=== PATIENT | female | born 1925 | race Caucasian/White ===

== ENCOUNTER 2017-10-04 23:25 | Inpatient (IN) | payer OTHER, BC ==
[~2017-10-04] VITALS: Ht 160 cm; Wt 58.1 kg
[~2017-10-04 23:25] MED LIST: ALPRAZOLAM0.25 M2 PO; CYANOCOBALAM1000 MCG PO; Cardizem CD,Cartia X PO; Colace PO; IRON325 M1 PO; LEVOFLOXACIN750 MG PO; LISINOPRIL40 MG PO; LISINOPRIL5 MG PO; Lopressor PO; METOPROLOL SUCC50 MG PO; METOPROLOL TART50 MG PO; MULTI-VITAMIN1 EAC3 PO; NEXIUM40 MG PO; PREDNISONE20 MG PO; PROTONIX40 MG PO; Pradaxa PO; SIMVASTATIN40 MG; SIMVASTATIN40 MG PO; TRAMADOL HCL50 MG PO; TYLENOL EXTRA500 MG PO; Tylenol Extra Streng PO; VITAMIN B-121000 MCG PO; XARELTO15 MG; XARELTO15 MG PO; Xarelto PO; ZOCOR40 MG PO; Zestril,Prinivil PO; Zocor PO
[2017-10-05 00:23] LABS: APPEARANCE CLOUDY ((CLEAR)); BILIRUBIN NEGATIVE; BLOOD NEGATIVE; COLOR YELLOW ((YELLOW)); GLUCOSE (STRIP) 50; KETONES NEGATIVE; LEUKOCYTES TRACE; NITRITE NEGATIVE; PROTEIN (STRIP) 30; SPECIFIC GRAVITY 1.023 (1.000-1.030)
[2017-10-05 00:28] LABS: BACTERIA 1+ /HPF; CALCIUM OXALATE CRYSTALS 2+ /HPF; EPITHELIAL CELLS 1+ /HPF; HYALINE CASTS 0-5 /LPF; MUCUS TRACE /LPF; UCUL ADDED? YES; WHITE BLOOD CELLS 15-20 /HPF (0-5)
[2017-10-05 00:36] LABS: BASOPHIL (%) 0.1 % (0-1); EOSINOPHIL (%) 0.1 % (0-5); HEMATOCRIT 30.2 % (36.0-46.0); IMMATURE GRANULOCYTE (%) 0.6 % (0.0-0.7); LYMPHOCYTE COUNT 2.1 K/uL (1.0-2.8); MCH 29.8 PG (29.0-34.0); MCHC 33.1 G/DL (30.0-36.0); MCV 89.9 FL (83-99); MONOCYTE (%) 9.4 % (3-12); MONOCYTE COUNT 0.9 K/uL (0-0.8); NEUTROPHIL (%) 66.8 % (45-76); NEUTROPHIL COUNT 6.1 K/uL (1.8-6.4); PLATELET COUNT 405 K/uL (156-360); RBC DIS.WIDTH-CV 15.9 % (11.8-14.6); RBC DIS.WIDTH-SD 52.5 % (39-53); RED BLOOD COUNT 3.36 M/uL (3.80-5.20); WHITE BLOOD COUNT 9.1 K/uL (4.1-10.2)
[2017-10-05 00:44] LABS: ALBUMIN 3.7 g/dL (3.2-4.8); CHLORIDE 92 mEq/L (99-109); POTASSIUM 3.6 mEq/L (3.7-5.4); SODIUM 128 mEq/L (136-147)
[2017-10-05 00:47] LABS: GLUCOSE 108 mg/dL (70-99); TOTAL PROTEIN 6.4 g/dL (6.4-8.3)
[2017-10-05 00:49] LABS: TOTAL BILIRUBIN 0.5 mg/dL (0.0-1.0)
[2017-10-05 00:50] LABS: ALKALINE PHOSPHATASE 107 IU/L (3-129); CREATININE 0.7 mg/dL (0.6-1.3); GFR ESTIMATE (CALCULATED) > 59 mL/min/
[2017-10-05 00:51] LABS: UREA NITROGEN (BUN) 16 mg/dL (9-23)
[2017-10-05 00:52] LABS: AST (GOT) 22 IU/L (2-34)
[2017-10-05 00:53] LABS: ALT (GPT) 19 IU/L (3-49)
[2017-10-05] MEDS ORDERED: A AND D OINTM42.5 GM TP (01:49)
[2017-10-05] MEDS ORDERED: ACETAMINOPHN-T1 EACH PO (01:49)
[2017-10-05] MEDS ORDERED: STOOL SOFTENER100 MG PO (01:50)
[2017-10-05] MEDS ORDERED: SILVADENE20 GM TP (01:50)
[2017-10-05] MEDS ORDERED: VITAMIN C250 M1 PO (01:50)
[2017-10-05] MEDS ORDERED: POTASSIUM CHLO10 ME4 PO (01:51)
[2017-10-05] MEDS ORDERED: ALPRAZOLAM0.25 M2 PO (01:51)
[2017-10-05] MEDS ORDERED: LAXATIVE5 M1 PO (01:51)
[2017-10-05] MEDS ORDERED: VITAMIN B-121000 MC1 SL (01:52)
[2017-10-05] MEDS ORDERED: PREDNISONE10 MG PO (01:52)
[2017-10-05] MEDS ORDERED: BUMETANIDE2 MG PO (01:53)
[2017-10-05] MEDS ORDERED: GINKGO BILOBA40 M1 PO (01:53)
[2017-10-05 12:25] VITALS: BP 141/64
[2017-10-05 15:22] VITALS: BP 126/75
[2017-10-05 20:11] VITALS: BP 136/77
[2017-10-05 23:54] VITALS: BP 114/57
[2017-10-06 04:10] VITALS: BP 132/73
[2017-10-06 07:27] VITALS: BP 135/67
[2017-10-06 08:17] LABS: HEMATOCRIT 28.1 % (36.0-46.0); HEMOGLOBIN 9.3 G/DL (11.9-15.5); MCH 30.2 PG (29.0-34.0); MCHC 33.1 G/DL (30.0-36.0); MCV 91.2 FL (83-99); PLATELET COUNT 322 K/uL (156-360); RBC DIS.WIDTH-CV 15.9 % (11.8-14.6); RED BLOOD COUNT 3.08 M/uL (3.80-5.20); WHITE BLOOD COUNT 6.1 K/uL (4.1-10.2)
[2017-10-06 08:55] LABS: CHLORIDE 97 MEQ/L (99-109); CREATININE 0.7 MG/DL (0.6-1.3); GFR ESTIMATE (CALCULATED) > 59 mL/min/; GLUCOSE 131 mg/dL (70-99); POTASSIUM 4.3 MEQ/L (3.7-5.4); SODIUM 128 MEQ/L (136-147); UREA NITROGEN (BUN) 11 mg/dL (9-23)
[2017-10-06 11:40] VITALS: BP 125/58
[2017-10-06 18:14] VITALS: BP 135/89
[2017-10-06 19:48] VITALS: BP 120/65
[2017-10-06 23:16] VITALS: BP 140/71
[2017-10-07 04:22] VITALS: BP 133/58
[2017-10-07 07:32] VITALS: BP 135/70
[2017-10-07 12:26] VITALS: BP 124/69
[2017-10-07 15:24] VITALS: BP 142/74
[2017-10-07 20:38] VITALS: BP 132/66
[2017-10-07 23:12] LABS: C DIFF TOXIN NEGATIVE (NEGATIVE)
[2017-10-07 23:16] VITALS: BP 129/67
[2017-10-08 04:25] VITALS: BP 150/86
[2017-10-08 05:23] LABS: HEMATOCRIT 29.2 % (36.0-46.0); HEMOGLOBIN 9.1 G/DL (11.9-15.5); MCHC 31.2 G/DL (30.0-36.0); PLATELET COUNT 357 K/uL (156-360); RBC DIS.WIDTH-CV 15.9 % (11.8-14.6); RBC DIS.WIDTH-SD 54.5 % (39-53); RED BLOOD COUNT 3.14 M/uL (3.80-5.20); WHITE BLOOD COUNT 8.9 K/uL (4.1-10.2)
[2017-10-08 05:45] LABS: CHLORIDE 98 MEQ/L (99-109); CREATININE 0.6 MG/DL (0.6-1.3); GFR ESTIMATE (CALCULATED) > 59 mL/min/; GLUCOSE 101 mg/dL (70-99); POTASSIUM 3.9 MEQ/L (3.7-5.4); SODIUM 130 MEQ/L (136-147); UREA NITROGEN (BUN) 15 mg/dL (9-23)
[2017-10-08 08:44] VITALS: BP 158/87
[2017-10-08 12:28] VITALS: BP 123/71
[2017-10-08 15:41] VITALS: BP 135/73
[2017-10-08 20:19] VITALS: BP 114/64
[2017-10-08 23:49] VITALS: BP 129/81
[2017-10-09 04:25] VITALS: BP 143/89
[2017-10-09 07:42] VITALS: BP 132/70
[2017-10-09 10:38] VITALS: BP 114/72
[2017-10-09 12:26] LABS: BASOPHIL (%) 0.1 % (0-1); EOSINOPHIL (%) 0.2 % (0-5); HEMATOCRIT 31.2 % (36.0-46.0); HEMOGLOBIN 9.9 G/DL (11.9-15.5); IMMATURE GRANULOCYTE (%) 0.6 % (0.0-0.7); LYMPHOCYTE (%) 9.5 % (15-42); LYMPHOCYTE COUNT 1.2 K/uL (1.0-2.8); MCH 29.9 PG (29.0-34.0); MCHC 31.7 G/DL (30.0-36.0); MCV 94.3 FL (83-99); MONOCYTE (%) 4.1 % (3-12); MONOCYTE COUNT 0.5 K/uL (0-0.8); NEUTROPHIL (%) 85.5 % (45-76); NEUTROPHIL COUNT 10.8 K/uL (1.8-6.4); PLATELET COUNT 374 K/uL (156-360); RBC DIS.WIDTH-CV 16.1 % (11.8-14.6); RBC DIS.WIDTH-SD 55.6 % (39-53); RED BLOOD COUNT 3.31 M/uL (3.80-5.20); WHITE BLOOD COUNT 12.6 K/uL (4.1-10.2)
[2017-10-09 13:04] LABS: CHLORIDE 100 MEQ/L (99-109); CREATININE 0.6 MG/DL (0.6-1.3); GFR ESTIMATE (CALCULATED) > 59 mL/min/; GLUCOSE 121 mg/dL (70-99); POTASSIUM 5.1 MEQ/L (3.7-5.4); SODIUM 128 MEQ/L (136-147); UREA NITROGEN (BUN) 16 mg/dL (9-23)
[2017-10-09 13:54] LABS: POTASSIUM 4.6 MEQ/L (3.7-5.4)
[2017-10-09 15:52] VITALS: BP 142/92
[2017-10-09 16:46] LABS: HEMATOCRIT 32.8 % (36.0-46.0); HEMOGLOBIN 10.3 G/DL (11.9-15.5); MCH 29.9 PG (29.0-34.0); MCHC 31.4 G/DL (30.0-36.0); MCV 95.1 FL (83-99); NRBC (%) 0.2 /100 WBC (0-0); PLATELET COUNT 434 K/uL (156-360); RBC DIS.WIDTH-SD 56.2 % (39-53); RED BLOOD COUNT 3.45 M/uL (3.80-5.20); WHITE BLOOD COUNT 10.8 K/uL (4.1-10.2)
[2017-10-09 17:46] LABS: INTER. NORMALIZED RATIO 1.9
[2017-10-09 17:49] LABS: PTT 33.2 SEC (25-37)
[2017-10-09 23:18] VITALS: BP 132/95
[2017-10-10 06:06] LABS: BASOPHIL (%) 0.1 % (0-1); EOSINOPHIL (%) 0.4 % (0-5); HEMATOCRIT 29.5 % (36.0-46.0); HEMOGLOBIN 9.2 G/DL (11.9-15.5); IMM.RETIC FRACTION 16.6 % (3-19); IMMATURE GRANULOCYTE (%) 1.1 % (0.0-0.7); LYMPHOCYTE (%) 18.3 % (15-42); LYMPHOCYTE COUNT 1.5 K/uL (1.0-2.8); MCH 29.5 PG (29.0-34.0); MCHC 31.2 G/DL (30.0-36.0); MCV 94.6 FL (83-99); MONOCYTE (%) 8.3 % (3-12); MONOCYTE COUNT 0.7 K/uL (0-0.8); NEUTROPHIL (%) 71.8 % (45-76); NEUTROPHIL COUNT 5.9 K/uL (1.8-6.4); PLATELET COUNT 340 K/uL (156-360); RBC DIS.WIDTH-CV 15.9 % (11.8-14.6); RBC DIS.WIDTH-SD 55.1 % (39-53); RED BLOOD COUNT 3.12 M/uL (3.80-5.20); RETIC HGB EQUIVALENT 36.2 (28-36); RETICULOCYTE COUNT 2.6 % (0.5-1.8); WHITE BLOOD COUNT 8.2 K/uL (4.1-10.2)
[2017-10-10 07:15] VITALS: BP 128/76
[2017-10-10 08:51] LABS: FOLIC ACID (FOLATE) 20.5 NG/ML (5.0-22.0)
[2017-10-10 10:37] VITALS: BP 138/92
[2017-10-10 16:30] VITALS: BP 136/88
[2017-10-10 20:36] VITALS: BP 130/75
[2017-10-10 23:50] VITALS: BP 136/89
[2017-10-11 04:10] VITALS: BP 146/96
[2017-10-11 06:11] LABS: HEMATOCRIT 29.9 % (36.0-46.0); HEMOGLOBIN 9.6 G/DL (11.9-15.5); MCV 93.4 FL (83-99); WHITE BLOOD COUNT 7.5 K/uL (4.1-10.2)
[2017-10-11 06:12] LABS: BASOPHIL (%) 0 % (0-1); EOSINOPHIL (%) 0.3 % (0-5); IMMATURE GRANULOCYTE (%) 1.2 % (0.0-0.7); LYMPHOCYTE (%) 19.6 % (15-42); LYMPHOCYTE COUNT 1.5 K/uL (1.0-2.8); MCHC 32.1 G/DL (30.0-36.0); MONOCYTE COUNT 0.5 K/uL (0-0.8); NEUTROPHIL (%) 71.9 % (45-76); NEUTROPHIL COUNT 5.4 K/uL (1.8-6.4); PLATELET COUNT 343 K/uL (156-360); RBC DIS.WIDTH-SD 55.1 % (39-53)
[2017-10-11 06:18] LABS: CHLORIDE 100 MEQ/L (99-109); CREATININE 0.7 MG/DL (0.6-1.3); GFR ESTIMATE (CALCULATED) > 59 mL/min/; GLUCOSE 120 mg/dL (70-99); POTASSIUM 3.7 MEQ/L (3.7-5.4); SODIUM 128 MEQ/L (136-147); UREA NITROGEN (BUN) 17 mg/dL (9-23)
[2017-10-11 07:59] VITALS: BP 134/81
[2017-10-11 12:02] VITALS: BP 116/75
[2017-10-11 16:30] VITALS: BP 117/80
[2017-10-11 20:26] VITALS: BP 139/87
[2017-10-11 23:39] VITALS: BP 105/59
[2017-10-12 04:35] VITALS: BP 111/85
[2017-10-12 06:12] LABS: BASOPHIL (%) 0 % (0-1); EOSINOPHIL (%) 0.3 % (0-5); HEMATOCRIT 31.9 % (36.0-46.0); HEMOGLOBIN 10.2 G/DL (11.9-15.5); LYMPHOCYTE (%) 16.9 % (15-42); LYMPHOCYTE COUNT 1.5 K/uL (1.0-2.8); MCH 29.9 PG (29.0-34.0); MCV 93.5 FL (83-99); MONOCYTE (%) 8.1 % (3-12); MONOCYTE COUNT 0.7 K/uL (0-0.8); NEUTROPHIL (%) 73.7 % (45-76); NEUTROPHIL COUNT 6.6 K/uL (1.8-6.4); NRBC (%) 0.2 /100 WBC (0-0); PLATELET COUNT 336 K/uL (156-360); RBC DIS.WIDTH-CV 16.2 % (11.8-14.6); RBC DIS.WIDTH-SD 55.3 % (39-53); RED BLOOD COUNT 3.41 M/uL (3.80-5.20)
[2017-10-12] MEDS ORDERED: METRONIDAZOLE500 MG PO (06:35)
[2017-10-12] MEDS ORDERED: ALPRAZOLAM0.25 M2 PO (06:38)
[2017-10-12] MEDS ORDERED: PANTOPRAZOLE SO40 MG PO (06:38)
[2017-10-12 08:05] VITALS: BP 137/80
== END 2017-10-12 11:15 | DRG 552 ==
LOC: EME → EDBD 23:25 → EME 23:25 → 3EAST 10-05 01:30 → EDOF 10-05 01:30 → ENRESERV 10-05 01:42 → 3EAST 10-05 12:15
PROVIDERS: Emergency Medicine; Family Medicine; Internal Medicine; Specialist
DX: S32.009A Unspecified fracture of unspecified lumbar vertebra, initial encounter for closed fracture (principal); K92.2 Gastrointestinal hemorrhage, unspecified; W19.XXXA Unspecified fall, initial encounter; E78.5 Hyperlipidemia, unspecified; E87.1 Hypo-osmolality and hyponatremia; E87.6 Hypokalemia; F41.9 Anxiety disorder, unspecified; I48.2 Chronic atrial fibrillation; D63.8 Anemia in other chronic diseases classified elsewhere; M19.90 Unspecified osteoarthritis, unspecified site; I10 Essential (primary) hypertension; K56.41 Fecal impaction; M25.552 Pain in left hip; M48.061 Spinal stenosis, lumbar region without neurogenic claudication; Z79.01 Long term (current) use of anticoagulants; E66.9 Obesity, unspecified; Z68.22 Body mass index [BMI] 22.0-22.9, adult; M87.9 Osteonecrosis, unspecified
CPT/HCPCS: 71046; 72148; 72192; 74018; 80048; 80053; 81003; 82272; 82607; 82746; 84999; 85025; 85025 91; 85027; 85046; 85610; 85730; 86140; 87086; 87493; 93005; 94799; 97530 GO; 97530 GP; 99281; 99285; A6214; C9113; J1756; J7030; J7050; J7512

== ENCOUNTER → 2017-10-28 | Outpatient (CLI) | payer OTHER, BC ==
[~2017-10-28] MED LIST changes: +A AND D OINTM42.5 GM TP; +ACETAMINOPHN-T1 EACH PO; +BIOFREEZE TP; +BUMETANIDE2 MG PO; +CEPACOL SORE T1 EAC9 MM; +DAILY VALUE1 EACH PO; +DULCOLAX10 MG PR; +DUONEB 2.5-0.5 M3 ML AEROSOL; +GINKGO BILOBA40 M1 PO; +LASIX80 MG PO; +LAXATIVE5 M1 PO; +METRONIDAZOLE500 MG PO; +MIRALAX17 GM PO; -MULTI-VITAMIN1 EAC3 PO; +NYSTATIN100000 UN1 PO; +OXYCODONE HCL5 MG PO; +PANTOPRAZOLE SO40 MG PO; +PHILLIPS'400 MG/5 M PO; +POTASSIUM CHLO10 ME4 PO; +PREDNISONE10 MG PO; +SENNA8.6 MG PO; +SILVADENE20 GM TP; +STOOL SOFTENER100 MG PO; +VITAMIN B-121000 MC1 SL; +VITAMIN C250 M1 PO; +VITAMIN D31000 UNIT PO; +XANAX0.25 MG PO
== END ==
LOC: RAD 13:21
DX: J90 Pleural effusion, not elsewhere classified (principal); J98.11 Atelectasis; I51.7 Cardiomegaly; I70.0 Atherosclerosis of aorta; I25.10 Atherosclerotic heart disease of native coronary artery without angina pectoris; R91.8 Other nonspecific abnormal finding of lung field; J18.9 Pneumonia, unspecified organism; R60.9 Edema, unspecified
CPT/HCPCS: 71250

== ENCOUNTER 2017-10-29 18:39 | Inpatient (IN) | payer OTHER, BC ==
[~2017-10-29] VITALS: Ht 157.5 cm; Wt 56.8 kg
[~2017-10-29 18:39] MED LIST changes: -BIOFREEZE TP; -CEPACOL SORE T1 EAC9 MM; -DULCOLAX10 MG PR; -DUONEB 2.5-0.5 M3 ML AEROSOL; -LASIX80 MG PO; -MIRALAX17 GM PO; -NYSTATIN100000 UN1 PO; -OXYCODONE HCL5 MG PO; -PHILLIPS'400 MG/5 M PO; -SENNA8.6 MG PO; -VITAMIN D31000 UNIT PO; -XANAX0.25 MG PO
[2017-10-29] MEDS ORDERED: DUONEB 2.5-0.5 M3 ML AEROSOL ×2 (20:36→20:48)
[2017-10-29] MEDS ORDERED: LASIX80 MG PO (20:39)
[2017-10-29] MEDS ORDERED: MIRALAX17 GM PO (20:41)
[2017-10-29] MEDS ORDERED: NYSTATIN100000 UN1 PO (20:43)
[2017-10-29] MEDS ORDERED: PROTONIX40 MG PO (20:44)
[2017-10-29] MEDS ORDERED: VITAMIN D31000 UNIT PO (20:46)
[2017-10-29] MEDS ORDERED: XANAX0.25 MG PO (20:47)
[2017-10-29] MEDS ORDERED: CEPACOL SORE T1 EAC9 MM (20:49)
[2017-10-29] MEDS ORDERED: OXYCODONE HCL5 MG PO (20:49)
[2017-10-29] MEDS ORDERED: PHILLIPS'400 MG/5 M PO (20:50)
[2017-10-29] MEDS ORDERED: DULCOLAX10 MG PR (20:50)
[2017-10-29] MEDS ORDERED: BIOFREEZE TP (20:51)
[2017-10-29] MEDS ORDERED: SENNA8.6 MG PO (20:51)
[2017-10-29] MEDS ORDERED: SILVADENE20 GM TP (20:52)
[2017-10-29 21:21] LABS: BASOPHIL (%) 0.1 % (0-1); EOSINOPHIL (%) 0.6 % (0-5); EOSINOPHIL COUNT 0.1 K/uL (0-0.3); HEMATOCRIT 33.3 % (36.0-46.0); LYMPHOCYTE COUNT 0.8 K/uL (1.0-2.8); MCH 30.5 PG (29.0-34.0); MCV 92.2 FL (83-99); MONOCYTE (%) 7.6 % (3-12); MONOCYTE COUNT 0.7 K/uL (0-0.8); NEUTROPHIL (%) 81.7 % (45-76); PLATELET COUNT 292 K/uL (156-360); RBC DIS.WIDTH-CV 17.7 % (11.8-14.6); RBC DIS.WIDTH-SD 58.8 % (39-53); RED BLOOD COUNT 3.61 M/uL (3.80-5.20); WHITE BLOOD COUNT 8.6 K/uL (4.1-10.2)
[2017-10-29 21:48] LABS: CHLORIDE 94 mEq/L (99-109); POTASSIUM 3.9 mEq/L (3.7-5.4); SODIUM 136 mEq/L (136-147)
[2017-10-29 21:50] LABS: GLUCOSE 129 mg/dL (70-99)
[2017-10-29 21:54] LABS: CREATININE 0.7 mg/dL (0.6-1.3); GFR ESTIMATE (CALCULATED) > 59 mL/min/
[2017-10-29 21:55] LABS: UREA NITROGEN (BUN) 24 mg/dL (9-23)
[2017-10-30 00:25] VITALS: BP 105/56
[2017-10-30 08:16] VITALS: BP 114/82
[2017-10-30 12:01] VITALS: BP 128/81
[2017-10-30 16:22] VITALS: BP 108/69
[2017-10-30 19:28] VITALS: BP 106/72
[2017-10-31 06:11] LABS: HEMATOCRIT 33.5 % (36.0-46.0); HEMOGLOBIN 10.6 G/DL (11.9-15.5); MCH 29.5 PG (29.0-34.0); MCHC 31.6 G/DL (30.0-36.0); MCV 93.3 FL (83-99); PLATELET COUNT 294 K/uL (156-360); RBC DIS.WIDTH-CV 17.9 % (11.8-14.6); RBC DIS.WIDTH-SD 60.4 % (39-53); RED BLOOD COUNT 3.59 M/uL (3.80-5.20); WHITE BLOOD COUNT 9.2 K/uL (4.1-10.2)
[2017-10-31 06:38] LABS: ALBUMIN 2.9 G/DL (3.2-4.8); ALKALINE PHOSPHATASE 129 IU/L (3-129); ALT (GPT) 23 IU/L (3-49); AST (GOT) 25 IU/L (2-34); CHLORIDE 93 MEQ/L (99-109); CREATININE 0.7 MG/DL (0.6-1.3); GFR ESTIMATE (CALCULATED) > 59 mL/min/; GLUCOSE 167 mg/dL (70-99); POTASSIUM 3.8 MEQ/L (3.7-5.4); SODIUM 136 MEQ/L (136-147); TOTAL BILIRUBIN 0.6 MG/DL (0.0-1.0); TOTAL PROTEIN 5.2 G/DL (6.4-8.3); UREA NITROGEN (BUN) 24 mg/dL (9-23)
[2017-10-31 06:42] LABS: C-REACTIVE PROTEIN 38.2 MG/L (0-10); PREALBUMIN 15.3 mg/dL (10-40)
[2017-10-31 07:41] VITALS: BP 115/76
[2017-10-31 07:54] LABS: ERTH.SED.RATE 32 MM/HR (0-30)
[2017-10-31 12:45] VITALS: BP 125/75
[2017-10-31 16:30] VITALS: BP 115/59
[2017-10-31 21:13] VITALS: BP 127/60
[2017-11-01] VITALS (7 sets, daily range): BP systolic 112–138; BP diastolic 57–69
[2017-11-01 15:04] LABS: INTER. NORMALIZED RATIO 1.5
[2017-11-01 15:07] LABS: PTT 30.3 SEC (25-37)
[2017-11-02 03:44] VITALS: BP 119/62
[2017-11-02 07:19] VITALS: BP 116/64
[2017-11-02 11:41] VITALS: BP 105/57
[2017-11-02 15:16] LABS: TYPE OF FLUID PLEURAL
[2017-11-02 15:33] LABS: APPEARANCE YELLOW-CLEAR; BODY FLUID RBC'S < 1000 /MM^3 (0-100); BODY FLUID WBC'S 35 /MM^3 (0-500)
[2017-11-02 16:12] VITALS: BP 108/62
[2017-11-02 17:02] LABS: BODY FLUID EOSINOPHILS 0 % (0-25); MONONUCLEAR WBC'S 73 %; POLYNUCLEAR WBC'S 27 % (0-25)
[2017-11-02 19:19] VITALS: BP 76/56
[2017-11-02 19:21] LABS: BODY FLUID GLUCOSE 165 MG/DL; BODY FLUID LDH 54 IU/L; BODY FLUID PROTEIN < 3.0 G/DL
[2017-11-03] VITALS: BP 86/54
[2017-11-03 07:01] LABS: HEMATOCRIT 33.2 % (36.0-46.0); HEMOGLOBIN 10.4 G/DL (11.9-15.5); MCH 29.2 PG (29.0-34.0); MCHC 31.3 G/DL (30.0-36.0); MCV 93.3 FL (83-99); PLATELET COUNT 266 K/uL (156-360); RBC DIS.WIDTH-CV 18.1 % (11.8-14.6); RBC DIS.WIDTH-SD 61.3 % (39-53); RED BLOOD COUNT 3.56 M/uL (3.80-5.20); WHITE BLOOD COUNT 9.3 K/uL (4.1-10.2)
[2017-11-03 07:25] LABS: ALBUMIN 2.4 G/DL (3.2-4.8); ALT (GPT) 18 IU/L (3-49); AST (GOT) 26 IU/L (2-34); CHLORIDE 97 MEQ/L (99-109); CREATININE 0.7 MG/DL (0.6-1.3); GFR ESTIMATE (CALCULATED) > 59 mL/min/; SODIUM 141 MEQ/L (136-147); TOTAL BILIRUBIN 0.5 MG/DL (0.0-1.0); UREA NITROGEN (BUN) 17 mg/dL (9-23)
[2017-11-03 07:28] LABS: ALKALINE PHOSPHATASE 75 IU/L (3-129); GLUCOSE 91 mg/dL (70-99); POTASSIUM 2.8 MEQ/L (3.7-5.4); TOTAL PROTEIN 4.4 G/DL (6.4-8.3)
[2017-11-03 07:46] VITALS: BP 101/55
[2017-11-03 11:30] VITALS: BP 119/59
[2017-11-03 16:10] VITALS: BP 110/60
[2017-11-04] VITALS (7 sets, daily range): BP systolic 90–118; BP diastolic 53–80
[2017-11-05] VITALS (7 sets, daily range): BP systolic 90–130; BP diastolic 58–68
[2017-11-05 06:36] LABS: CHLORIDE 100 MEQ/L (99-109); CREATININE 0.7 MG/DL (0.6-1.3); GFR ESTIMATE (CALCULATED) > 59 mL/min/; GLUCOSE 103 mg/dL (70-99); SODIUM 141 MEQ/L (136-147); UREA NITROGEN (BUN) 21 mg/dL (9-23)
[2017-11-05 06:41] LABS: POTASSIUM 3.6 MEQ/L (3.7-5.4)
[2017-11-06 04:10] VITALS: BP 98/67
[2017-11-06 06:18] LABS: CHLORIDE 102 MEQ/L (99-109); CREATININE 0.6 MG/DL (0.6-1.3); GFR ESTIMATE (CALCULATED) > 59 mL/min/; GLUCOSE 105 mg/dL (70-99); SODIUM 140 MEQ/L (136-147); UREA NITROGEN (BUN) 21 mg/dL (9-23)
[2017-11-06 07:42] VITALS: BP 108/60
[2017-11-06 11:00] VITALS: BP 94/62
[2017-11-06 15:16] VITALS: BP 98/62
[2017-11-06 20:09] VITALS: BP 101/84
[2017-11-07 01:40] VITALS: BP 98/82
[2017-11-07 06:26] LABS: CHLORIDE 103 MEQ/L (99-109); CREATININE 0.6 MG/DL (0.6-1.3); GFR ESTIMATE (CALCULATED) > 59 mL/min/; GLUCOSE 115 mg/dL (70-99); POTASSIUM 4.2 MEQ/L (3.7-5.4); SODIUM 140 MEQ/L (136-147); UREA NITROGEN (BUN) 23 mg/dL (9-23)
[2017-11-07 07:20] VITALS: BP 124/73
[2017-11-07] MEDS ORDERED: FUROSEMIDE40 MG PO (14:29)
[2017-11-07] MEDS ORDERED: Ocean Nasal 0.65% BOTH NARES (14:30)
[2017-11-07 15:16] VITALS: BP 123/74
== END 2017-11-07 17:45 | DRG 982 ==
LOC: EME 18:39 → EDOF 20:11 → 5EAST 20:11 → ENRESERV 20:19 → 5EAST 22:10
PROVIDERS: Emergency Medicine; Internal Medicine; Internal Medicine Cardiovascular Disease; Internal Medicine Pulmonary Disease; Nurse Practitioner
PROC: 0W993ZZ Drainage of Right Pleural Cavity, Percutaneous Approach (ICD-10-PCS; principal; 2017-10-29)
PROC: 0W993ZX Drainage of Right Pleural Cavity, Percutaneous Approach, Diagnostic (ICD-10-PCS; principal; 2017-10-29)
PROC: 0JDG0ZZ Extraction of Right Lower Arm Subcutaneous Tissue and Fascia, Open Approach (ICD-10-PCS; 2017-10-30)
PROC: 0JDG0ZZ Extraction of Right Lower Arm Subcutaneous Tissue and Fascia, Open Approach (ICD-10-PCS; 2017-11-03)
DX: J90 Pleural effusion, not elsewhere classified (principal); I48.2 Chronic atrial fibrillation; E78.5 Hyperlipidemia, unspecified; I48.0 Paroxysmal atrial fibrillation; E66.9 Obesity, unspecified; I50.22 Chronic systolic (congestive) heart failure; F41.9 Anxiety disorder, unspecified; S51.001A Unspecified open wound of right elbow, initial encounter; K92.2 Gastrointestinal hemorrhage, unspecified; S32.009D Unspecified fracture of unspecified lumbar vertebra, subsequent encounter for fracture with routine healing; X58.XXXA Exposure to other specified factors, initial encounter; I08.1 Rheumatic disorders of both mitral and tricuspid valves; D64.9 Anemia, unspecified; I44.7 Left bundle-branch block, unspecified; I42.9 Cardiomyopathy, unspecified; I11.0 Hypertensive heart disease with heart failure; G89.29 Other chronic pain; M54.9 Dorsalgia, unspecified; S32.9XXD Fracture of unspecified parts of lumbosacral spine and pelvis, subsequent encounter for fracture with routine healing; H91.90 Unspecified hearing loss, unspecified ear; M16.0 Bilateral primary osteoarthritis of hip; M46.80 Other specified inflammatory spondylopathies, site unspecified; J98.11 Atelectasis; K59.00 Constipation, unspecified; M81.0 Age-related osteoporosis without current pathological fracture; E87.6 Hypokalemia; T50.2X5A Adverse effect of carbonic-anhydrase inhibitors, benzothiadiazides and other diuretics, initial encounter; Y93.9 Activity, unspecified; Y92.000 Kitchen of unspecified non-institutional (private) residence as the place of occurrence of the external cause; Z88.0 Allergy status to penicillin; Y92.009 Unspecified place in unspecified non-institutional (private) residence as the place of occurrence of the external cause; Z79.01 Long term (current) use of anticoagulants
CPT/HCPCS: 71045; 71046; 71250; 76942; 80048; 80048 91; 80053; 82945; 83615 91; 83880; 84134; 84145 90; 84157; 85025; 85027; 85610; 85651; 85730; 86140; 87040; 87070; 87075; 87077; 87147; 87186; 87205; 88108; 88305; 89051; 93005; 93306; 94010; 94640; 94640 76; 94760; 94799; 99202; 99281; 99285; A6021; J0692; J1940; J1956; J2543; J7030; J7040; J7050